=== PATIENT | female | born 1970 | race Caucasian/White ===

== ENCOUNTER 2017-07-25 09:51 | Emergency (ER) | payer OTHER ==
[~2017-07-25] VITALS: Ht 167.6 cm; Wt 108.9 kg
--- NOTE | ~2017-07-25 | EKG ---
[place] [address] [facility] [address] ELECTROCARDIOGRAM REPORT Name: JEANCARLOS JIMENES Room #: REG [facility]#: [id number] Admission: 07/25/17 Attend Phys: Discharge: Date of : 68 Report #: [id number] THIS REPORT FOR: //name// [facility] ED Test Date: 2017-07-25 Test Time: 10:06:44 Pat Name: JEANCARLOS JIMENES Department: Room: Gender: F [employer] Operator: [id number] : [id number] Requested By: Virgilio Mena Order Number: [id number] MD: Harman Torre Measurements Intervals [place] Rate: 70 P: 42 MO: 143 QRS: 8 QRSD: 89 T: 9 QT: 393 QTc: 425 Interpretive Statements Sinus rhythm Probable left atrial enlargement No previous ECG available for comparison Electronically Signed On 07-25-2017 13:05:45 CDT by Harman Torre [email or web address] <ELECTRONICALLY SIGNED> By: Harman Torre MD 07/25/17 1305 1006 1006 Harman Torre MD /EDWINA
[2017-07-25] MEDS ORDERED: CELEXA20 MG PO (10:11)
[2017-07-25] MEDS ORDERED: OMEPRAZOLE40 MG PO (10:11)
[2017-07-25 10:36] LABS: ABSOLUTE NEUTROPHILS 3.6 thou/uL (1.4-8.2); BASOPHILS 0.6 % (0.0-2.0); EOSINOPHILS 1.6 % (0.0-3.0); HEMATOCRIT 42.3 % (37.0-47.0); LYMPHOCYTES 32.6 % (24.0-44.0); MANUAL DIFF NO; MCH 27.4 pg (26.0-34.0); MCHC 33.2 g/dL (28.0-37.0); MCV 82.7 fL (80.0-100.0); MONOCYTES 7.8 % (1.0-8.0); PLATELET COUNT 199 thou/uL (150-400); POLYS 57.4 % (36.0-66.0); RBC 5.12 mil/uL (4.20-5.00); RDW 13.7 % (10.5-14.5); WBC 6.2 thou/uL (4.0-11.0)
[2017-07-25 10:38] LABS: ANION GAP 6 mmol/L (7-16); BUN 18 mg/dL (7-18); CALCIUM 9.8 mg/dL (8.5-10.1); CHLORIDE 103 mmol/L (98-107); CO2 26 mmol/L (21-32); CREATININE 0.6 mg/dL (0.6-1.0); GLUCOSE 96 mg/dL (74-106); SODIUM 135 mmol/L (136-145)
[2017-07-25 10:46] LABS: TROPONIN-I < 0.04 ng/mL (<0.04-0.07)
[2017-07-25 11:19] LABS: URINE BILIRUBIN NEGATIVE (Negative); URINE BLOOD NEGATIVE (Negative); URINE COLOR YELLOW; URINE GLUCOSE-RANDOM* NEGATIVE (Negative); URINE KETONES NEGATIVE (Negative); URINE NITRITE NEGATIVE (Negative); URINE PROTEIN (DIPSTICK) NEGATIVE (Negative); URINE UROBILINOGEN 0.2 E.U./dl (0.2-1.0)
[2017-07-25 11:41] LABS: ALBUMIN 4.1 g/dL (3.4-5.0); ALKALINE PHOSPHATASE 105 U/L (46-116); DIRECT BILIRUBIN < 0.1 mg/dL (<0.1-0.3); SGOT 36 U/L (15-37); SGPT 52 U/L (30-65); TOTAL BILIRUBIN 0.4 mg/dL (<0.1-1.0); TOTAL PROTEIN 7.3 g/dL (6.4-8.2)
[2017-07-25 13:29] VITALS: BP 131/69
== END 2017-07-25 13:31 | disposition home or self-care (01) ==
LOC: ER 09:51
PROVIDERS: Nurse Practitioner
DX: R07.89 Other chest pain (principal); Z88.0 Allergy status to penicillin